=== PATIENT | female | born 1980 ===

== ENCOUNTER 2024-03-31 05:01 | Day surgery (SDC) | payer OTHER ==
[2024-03-02 12:22] VITALS: BMI 31.2
[2024-03-31] MEDS ORDERED: PROPOFOL 20 ML ONE (09:47)
[2024-03-31] MEDS ORDERED: DEXAMETHASONE SOD PHOSPHATE 4 MG/1 ML VIAL ONE (09:47)
[2024-03-31] MEDS ORDERED: ONDANSETRON 4 MG/2 ML VIAL ONE (09:47)
[2024-03-31] MEDS ORDERED: MIDAZOLAM HCL 2 MG/2 ML SINGLE DOSE VIAL ONE (09:48)
[2024-03-31] MEDS: ceFAZolin SODIUM 1 GM VIAL IVPB ONE (10:10)
[2024-03-31] MEDS: LIDOCAINE HCL 1%, 10 MG/ML (20ML VIAL) NR ONE (10:15)
[2024-03-31] MEDS ORDERED: ONDANSETRON 4 MG/2 ML VIAL IVPUSH PRN (11:06)
[2024-03-31] MEDS ORDERED: LACTATED RINGERS SOLUTION 1,000 ML IV SCH (11:15)
[2024-03-31 12:29] VITALS: RESP 18
[2024-03-31 14:11] VITALS: BP 138/76; PULSE 88; TEMP 98.4
== END 2024-03-31 14:05 | disposition home or self-care (01) ==
LOC: JASU-SURG 05:01
PROVIDERS: ATTEND Surgery
PROC: 0HBU0ZX Excision of Left Breast, Open Approach, Diagnostic (ICD-10-PCS; principal; 2024-03-31 09:30)
DX: D24.2 Benign neoplasm of left breast (principal)
CPT/HCPCS: 19281; 76098-TC-FY; 82962; 86850; 86900; 86901; 88307-TC; 94760; A4648